=== PATIENT | male | born 1990 | race Caucasian/White ===

== ENCOUNTER → 2020-03-16 | Outpatient (CLI) | payer OTHER, SELFPAY | END | disposition home or self-care (01) | LOC: LABSPEC 10:53 | PROVIDERS: PCP Nurse Practitioner Family; Referring Provider Physician Assistant; Visit Provider Physician Assistant | DX: Z11.59 Encounter for screening for other viral diseases (principal) | CPT/HCPCS: 87635; G2023; U0003 ==